=== PATIENT | female | born 1990 | race Caucasian/White ===

== ENCOUNTER 2020-09-24 21:13 | Emergency (ER) | payer BC, SELFPAY ==
[2020-09-24 21:20] VITALS: BP 131/82; PULSE 100; RESP 15; TEMP 36.8; O2SAT 100
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
[2020-09-24] MEDS: HYDROcodone/acetaminophen (*CRX) 5-325 MG TABLET 1 TAB PO (21:35)
[2020-09-24] MEDS: TETANUS,DIPHTHERIA,AC PERTUSSIS ADULT (0.5 ML) BOOSTRIX IM (23:10)
[2020-09-24 23:14] VITALS: BP 116/75; PULSE 78; RESP 23; O2SAT 100
== END 2020-09-24 23:15 | disposition home or self-care (01) ==
PROVIDERS: Emergency Provider Emergency Medicine; PCP Physician Assistant
DX: T23.161A Burn of first degree of back of right hand, initial encounter (principal); T31.0 Burns involving less than 10% of body surface; X03.0XXA Exposure to flames in controlled fire, not in building or structure, initial encounter; Z23 Encounter for immunization
CPT/HCPCS: 90471; 90715; 99283; A9270

== ENCOUNTER 2021-01-16 10:59 | Outpatient (CLI) | payer BC, SELFPAY ==
--- NOTE | ~2021-01-16 | US_ITS ---
US breast LT limited DATE: 01/16/2021 11:17 INDICATION: Breast lump TECHNIQUE: Targeted real time imaging at area of clinical complaint of breast lump at 10:00 1 cm from nipple COMPARISON: None FINDINGS: There is a 1.5 x 1.0 x 1.6 cm sonolucency with through transmission posterior enhancement c onsistent with simple cyst. No suspicious mass or shadowing is detected. IMPRESSION: BI-RADS Category 2: Benign finding Reviewed, dictated and finalized at [facility]. Reviewed, dictated and finalized at location A. [employer] MANAGER
== END 2021-01-16 11:00 | disposition home or self-care (01) ==
LOC: ANHIMG 11:01
PROVIDERS: PCP Physician Assistant; Visit Provider Student in an Organized Health Care Education/Training Program
DX: N63.22 Unspecified lump in the left breast, upper inner quadrant (principal)
CPT/HCPCS: 76642

== ENCOUNTER 2022-01-01 00:23 | Day surgery (SDC) | payer MEDICAID, SELFPAY ==
--- NOTE | 2021-12-22 10:44 | SUR.PREOP ---
Report to the Outpatient Waiting Room, entrance under the green pavilion located off [facility], at time 1330 on date 01/01/22. Planned Procedure Time: 1530. Time changes happen often and if your time is changed the preop area will call you the afternoon before. - You and your visitor will be asked to self-screen and do not enter if you have any COVID symptoms. - We encourage only one visitor and NO visitors under age 16 are allowed at this time. Your visitor will receive communication by the phone number that is given day of service. - The patient visitor is requested to social distance or may leave the building when not with patient due to restrictions. - A mask is required within the hospital. Patients may have clear liquids (water, carbonated beverages, clear teas, apple juice) until 3 hours prior to surgery with a maximum of 20 ounces. - NO CLEAR LIQUIDS AFTER 1230 - No food from midnight until time of surgery - Infants may have breast milk until 4 hours before surgery, infant formula 6 hours prior to surgery. - Children will be allowed to drink immediately following surgery. If applicable, please bring a bottle or sippy cup to assist with drinking. Juice, water, soda, and popsicles are readily available. For infants on formula, please bring formula the day of surgery. Pacifiers are allowed. Take the following medications with a SIP of water the morning of surgery: LEXAPRO, BUPROPION Please no make-up, nail azerbaijani, hairspray, perfume, deodorant, or body powder the day of surgery. No jewelry (including any body piercings) or valuables the day of surgery, leave them at home. Please take a shower or bath the night before, or the morning of, surgery with an antibacterial soap. Wear comfortable, loose fitting clothing. Children are encouraged to wear pajamas. - Jewelry must be removed prior to entering the operating room. Rings and piercings that are not removed may be cut off. - The hospital will not accept responsibility for valuables. - Please leave all valuables, including medications, at home the day of surgery. If you are going home after surgery, a licensed bus driver/monitor must drive you home. - NO public transportation without another adult. - We recommend that an adult stay with you for 24 hours following discharge. - We also recommend that you do not drive, make important decision, drink alcoholic beverages, or take any drugs that were not prescribed by your health care provider for at least 24 hours after your discharge time. For Pediatric surgeries, we recommend two adults accompany the child home. Follow any additional instructions given to you from your surgeon. If you or anyone in your household have experienced Covid symptoms in the past week, please notify your surgeon or the nurse liaison at the phone number below for possible testing. Telephone instructions given to NICANOR PEDROZA and asked if any additional questions and then verbalized understanding. Patient advised to call surgeon office or pre surgery nurse liaison [phone] if any additional questions.
[2021-12-22 10:54] VITALS: BMI 25.9
--- NOTE | 2021-12-30 11:40 | P.HP_ITS ---
H&P: HPI History of Present Illness Date/Time: 12/30/21 11:40 Chief Complaint: Desires permanent sterilization Narrative: Since 31-year-old multiparous patient admitted for laparoscopic bilateral tubal ligation secondary to desiring permanent sterilization. She has signed the [facility] consent form. She read the [employer] handout entitled sterilization for men and women. Risks and benefits of this procedure reviewed including but not exclusive of , aspiration pneumonia, bleeding, transfusion, perforation injury to bowel, bladder, ureters, or other internal organs with need for laparotomy. We reviewed all internal alternatives including but not exclusive of pills, patches, long-acting contraceptives. [facility] Social History Social History Spiritual care concerns: No Meds Home Medications and Allergies Home Medications Medication Instructions Recorded Confirmed Type bupropion HCl 150 mg tablet,12 hr 150 mg PO BID 12/22/21 12/22/21 History sustained-release escitalopram oxalate 10 mg tablet 10 mg PO DAILY 12/22/21 12/22/21 History (Lexapro) Allergies Allergy/AdvReac Type Severity Reaction Status Date / Time Penicillins Allergy Unknown Vomiting Verified 12/22/21 10:53 Exam Const: General: cooperative, healthy appearing, comfortable and well groomed Nutritional Appearance: average body habitus Orientation/consciousness: oriented to person, oriented to place and oriented to time HENMT: Head: normal to inspection Chest: Chest palpation & inspection: normal inspection of the chest Resp: Effort & Inspection: normal respiratory effort Cardio: Rate: regular rate Rhythm: regular rhythm Heart sounds: S1 larry l heart sound present and S2 normal heart sound present GI: Inspection: normal to inspection : External Female Exam: normal external appearance Speculum Exam - Vagina: normal appearance of the vagina and normal vaginal discharge Speculum Exam - Cervix: Cervical os closed Bimanual exam- vagina & uterus: non-tender Bimanual Exam- Adnexa, other: normal adnexae Assessment and Plan Assessment and plan (1) Sterilization: Code(s): Z30.2 - Encounter for sterilization Status: Acute Plan Laparoscopic bilateral tubal ligation
--- NOTE | 2021-12-31 14:51 | WPDANESEPPF ---
Anes - Initial Pre Proc Eval Procedure: Operation Date: 01/01/22 15:30 Proposed Procedures p Laparoscopic Bilateral Tubal Ligation with Fallopian Rings with Removal of Intrauterine Device - Isreal Hanson MD <Robert Pichardo MD - Last Filed: 01/03/22 08:04> Date/Time: 12/31/21 14:51 <Robert Pichardo MD - Last Filed: 01/03/22 08:04> Surgeon: Isreal Hanson MD <Robert Pichardo MD - Last Filed: 01/03/22 08:04> Pre Op Diagnosis: desires sterilization <Robert Pichardo MD - Last Filed: 01/03/22 08:04> Patient Data Age: 31 Gender: F Height: 1.5 m Weight: 58.2 kg <Robert Pichardo MD - Last Filed: 01/03/22 08:04> Allergies Allergy/AdvReac Type Severity Reaction Status Date / Time Penicillins Allergy Unknown Vomiting Verified 12/22/21 10:53 <Robert Pichardo MD - Last Filed: 01/03/22 08:04> Home Medications Medication Instructions Recorded Confirmed Type bupropion HCl 150 mg tablet,12 hr 150 mg PO BID 12/22/21 12/22/21 History sustained-release escitalopram oxalate 10 mg tablet 10 mg PO DAILY 12/22/21 12/22/21 History (Lexapro) hydrocodone 5 mg-acetaminophen 325 1 tablet PO Q4H PRN pain #20 tabs 01/01/22 Rx mg tablet <Robert Pichardo MD - Last Filed: 01/03/22 08:04> Patient hx anesthesia problems: none <Isreal Li MD - Last Filed: 01/01/22 13:43> Family hx anesthesia problems: none <Isreal Li MD - Last Filed: 01/01/22 13:43> Results Review: All pre-operative results and documents have been reviewed as part of the pre-operative evaluation. <Robert Pichardo MD - Last Filed: 01/03/22 08:04> PMFSH Past Medical History Medical History: Medical History Anxiety Depression <Robert Pichardo MD - Last Filed: 01/03/22 08:04> Surgical History Surgical History: Surgical History (Updated 01/01/22 @ 13:42 by Isreal Li MD) History of section <Robert Pichardo MD - Last Filed: 01/03/22 08:04> Social History Social History: Social History Spiritual care concerns: No <Robert Pichardo MD - Last Filed: 01/03/22 08:04> Anes - Eval Final PreProcedure Day of Procedure 12/31/21 14:51 <Robert Pichardo MD - Last Filed: 01/03/22 08:04> Patient weight: normal <Robert Pichardo MD - Last Filed: 01/03/22 08:04> Heart: regular rate and rhythm <Robert Pichardo MD - Last Filed: 01/03/22 08:04> Lungs: clear to auscultation and normal air movement <Robert Pichardo MD - Last Filed: 01/03/22 08:04> Airway: Mallampati scale class II <Robert Pichardo MD - Last Filed: 01/03/22 08:04> Mallampati scale class 1 <Isreal Li MD - Last Filed: 01/01/22 13:43> Neurological: alert and oriented <Robert Pichardo MD - Last Filed: 01/03/22 08:04> Last oral intake: >/= 8 hours <Robert Pichardo MD - Last Filed: 01/03/22 08:04> ASA classification: II <Robert Pichardo MD - Last Filed: 01/03/22 08:04> Emergent: no <Robert Pichardo MD - Last Filed: 01/03/22 08:04> Anesthetic plan: proceed <Robert Pichardo MD - Last Filed: 01/03/22 08:04> Anesthesia type and monitoring: general ETT <Robert Pichardo MD - Last Filed: 01/03/22 08:04> Results Review: All pre-operative results and documents have been reviewed as part of the pre-operative evaluation. <Robert Pichardo MD - Last Filed: 01/03/22 08:04> Informed Consent: The patient's anesthetic plan and its attendant risks and benefits were discussed with the patient/family/POA. Questions were solicited and answers provided to the satisfaction of the patient/family/POA. <Robert Pichardo MD - Last Filed: 01/03/22 08:04>
--- NOTE | 2022-01-01 06:20 | WPDHPUPDATE1 ---
History and Physical Update Update Date/Time: 01/01/22 06:20 History and Physical has been reviewed, including an updated exam of the patient. There are NO changes in the patient's condition. Risks, benefits, and alternatives have been discussed and questions answered. Patient agrees to proceed with procedure.
[2022-01-01] MEDS: ACETAMINOPHEN 500 MG TABLET 1000 MG PO (13:09)
[2022-01-01] MEDS: LACTATED RINGERS 1,000 ML 30 ML IV CONT (13:09)
[2022-01-01] MEDS: KETOROLAC 15 MG/ML VIAL (*BKC) IV PUSH ×2 (13:10→16:24)
[2022-01-01 13:12] VITALS: BP 124/78; PULSE 69; RESP 16; TEMP 37.3; O2SAT 99
--- NOTE | 2022-01-01 15:00 | P.OP_ITS ---
Procedure Note - Detailed Date of Procedure 01/01/22 Pre-op Diagnosis desires sterilization Post-op Diagnosis Same Procedure Performed Laparoscopic bilateral tubal ligation with rings Surgeon Isreal Hanson MD Anesthesia General Indications this is a 31-year-old female who is multiparous and desires permanent sterilization. She does have an IUD and this was today Findings uterus was somewhat enlarged but markedly adherent to the abdominal. The tubes and ovaries appeared within normal limits otherwise. Description of Procedure Patient was prepped draped in the normal sterile fashion placed in the dorsal lithotomy position. Under excellent general trach anesthesia weighted speculum placed posterior fornix vagina. Anterior lip of cervix grasped with single- tooth tenaculum. The uterus uterine manipulator was attached to the single- tooth to be used later for urinary uterine manipulation. The bladder is emptied of clear urine. The weighted speculum was removed and gloves were changed. An infraumbilical incision made with a Veress needle passed in the abdomen. Abdomen filled with CO2 gas to 15mm emerge the 5mm trocar advanced in the abdomen under direct visualization assuring no injury. Patient placed in 10 Trendelenburg and a left lower quadrant incision was made the 5mm trocar advanced in the abdomen under direct visualization. The uterus was noted be markedly adherent to the anterior abdominal wall. The fallopian tubes and ovaries appeared within normal limits. The left fallopian tube was grasped in its midportion a good knuckle of tube Grass and a good blanching was noted. The right fallopian tube was then grasped at its midportion good knuckle of tube brought up with excellent blanching with the ring. Photo documentation was undertaken. Lower site removed. The gas removed from the abdomen. The upper site removed. The incisions closed with 4-0 Monocryl and glue. Patient went to recovery in satisfactory condition. All sponge, needle, instrument counts were correct. There were no immediate complications Estimated Blood Loss 5 Drains No Packing No Pathology None sent Complications No immediate complications Condition Stable Disposition PACU
[2022-01-01 15:17] VITALS: BP 110/65; PULSE 100; RESP 13; TEMP 36.4; O2SAT 96
[2022-01-01 15:30] VITALS: BP 119/80; PULSE 110; RESP 14; O2SAT 97
[2022-01-01 15:45] VITALS: BP 121/86; PULSE 104; RESP 10; O2SAT 97
[2022-01-01 16:00] VITALS: BP 133/81; PULSE 102; RESP 15
[2022-01-01 16:25] VITALS: BP 126/73; PULSE 85; RESP 15
== END 2022-01-01 16:44 | disposition home or self-care (01) ==
PROVIDERS: PCP Physician Assistant; Visit Provider Obstetrics & Gynecology
PROC: (CPT 58671; principal; 2022-01-01 15:30)
DX: Z30.2 Encounter for sterilization (principal); N73.6 Female pelvic peritoneal adhesions (postinfective); F41.9 Anxiety disorder, unspecified; F32.A Depression, unspecified
CPT/HCPCS: 58671; A4264; A9270; J0330; J1100; J1885; J2250; J2405; J2704; J3010; J7120

== ENCOUNTER 2022-04-27 10:47 | Emergency (ER) | payer BC, SELFPAY ==
--- NOTE | ~2022-04-27 | XR_ITS ---
XR facial bones min 3V 04/27/2022 12:27 Indication: Facial pain after trauma Procedure: 4 views of the facial bones Comparison: No prior studies for comparison. Findings: No acute maxillofacial fracture is identified. Temporomandibular joints are symmetric. No f ocal soft tissue abnormality. No foreign bodies. Paranasal sinuses appear pneumatized. Mastoids are p neumatized. Impression: 1: No acute facial fracture is identified. If there is continued concern for subtle nondisplaced frac ture, correlation with CT recommended. Reviewed, dictated and finalized at location [facility]. TRANSPORTER Impression: 1: No acute facial fracture is identified. If there is continued concern for blandon btle nondisplaced fracture, correlation with CT recommended.
[2022-04-27 11:22] VITALS: BP 142/83; PULSE 83; RESP 16; TEMP 37.7; O2SAT 99
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
== END 2022-04-27 13:07 | disposition home or self-care (01) ==
PROVIDERS: Emergency Provider Nurse Practitioner Family
DX: R51.9 Headache, unspecified (principal); Y04.8XXA Assault by other bodily force, initial encounter
CPT/HCPCS: 70150; 99213; G0463

== ENCOUNTER 2022-04-28 08:54 | Emergency (ER) | payer BC, SELFPAY ==
--- NOTE | ~2022-04-28 | CT_ITS ---
EXAMINATION: CT facial bones wo con DATE: 04/28/2022 11:16 INDICATION: Left-sided jaw pain and swelling. Status post injury. TECHNIQUE: Computed tomography (CT) of the was performed without intravenous contrast. The dose-lengt h product was 419.93 mGy-cm. Automated exposure control and iterative reconstruction technique were e mployed. COMPARISON: Facial bone x-rays dated 04/27/2022 FINDINGS: There is mucosal thickening of the left maxillary sinus. No air-fluid levels. No mucoperios teal reaction. The orbits are symmetric. The mandible is intact. Temporomandibular joints are symmetr ic. No nasal fractures. Orbits within normal limits without blowout fracture. There is nasal septal d eviation to the right posteriorly. Zygomatic arches and pterygoid plates are intact. Mastoids are pne umatized. IMPRESSION: 1. No acute abnormality of the facial bones. Reviewed, dictated and finalized at location [facility]. [facility]
--- NOTE | ~2022-04-28 | CT_ITS ---
Non-contrast Head CT History: Head injury Technique: Axial non-contrast imaging of the brain was performed. Dose reduction technique was used on this scan by utilizing automated exposure control and iterative reconstruction technique. The dose -length product (DLP) was 529.67 mGy-cm. Findings: There is a very small acute subdural hematoma along the right side of the anterior falx cer ebri. The ventricles and subarachnoid spaces are normal in size. The calvarium appears normal. The visualized paranasal sinuses and mastoid air cells are clear. Impression: Very small acute subdural hematoma on the right side of the anterior falx cerebri. Case discussed with SRI Howard at the time of this reading. Reviewed, dictated and finalized at [facility]. INSTALLER Impression: Very small acute subdural hematoma on the right side of the anterior falx cereb ri. Case discussed with SRI Howard at the time of this reading.
[2022-04-28 08:56] VITALS: BP 134/80; PULSE 86; RESP 16; TEMP 37; O2SAT 100
[2022-04-28 10:56] VITALS: BP 118/78; PULSE 78; RESP 14; O2SAT 100
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
[2022-04-28 12:12] VITALS: BP 123/90; PULSE 100; RESP 18; O2SAT 100
== END 2022-04-28 12:28 | disposition short-term general hospital (02) ==
PROVIDERS: Emergency Provider Physician Assistant
DX: S06.5XAA Traumatic subdural hemorrhage with loss of consciousness status unknown, initial encounter (principal); T74.11XA Adult physical abuse, confirmed, initial encounter; Y07.03 Male partner, perpetrator of maltreatment and neglect
CPT/HCPCS: 70450; 70486; 99284; 99285; L0140

== ENCOUNTER 2022-06-08 15:34 | Emergency (ER) | payer BC, SELFPAY ==
[2022-06-08 15:40] VITALS: BP 133/58; PULSE 65; RESP 16; TEMP 37.6; O2SAT 100
--- NOTE | 2022-06-08 15:53 | ED.URI ---
HPI - URI/Sore Throat General Chief Complaint: Upper Respiratory Infection Stated Complaint: congestion Time Seen by Provider: 06/08/22 15:53 Source: patient, RN notes reviewed and old records reviewed Mode of arrival: ambulatory Limitations: no limitations History of Present Illness HPI Narrative: 31-year-old female presents to the [facility] with complaints of decreased hearing and ear pain bilaterally. States the pain is been going on about 4 days. Reports that she had cold-like symptoms a week ago. Has been taking Sudafed with no relief. Onset (ago): day(s) (4) Related Data Home Medications Medication Instructions Recorded Confirmed bupropion HCl 150 mg tablet,12 hr 150 mg PO BID 12/22/21 06/08/22 sustained-release escitalopram oxalate 10 mg tablet 10 mg PO DAILY 12/22/21 06/08/22 (Lexapro) Allergies Allergy/AdvReac Type Severity Reaction Status Date / Time Penicillins Allergy Unknown Vomiting Verified 06/08/22 15:41 Review of Systems Review of Systems: All systems reviewed & are unremarkable except as noted in HPI and below Constitutional: Constitutional: Reports no additional constitutional complaints Eyes: Eyes: Reports no additional eye complaints ENT: Reports as per HPI and Reports otalgia (Bilateral) Cardiovascular: Cardiovascular: Reports no additional cardiovascular complaints, Denies chest pain and Denies dyspnea Respiratory: Respiratory: Reports no additional respiratory complaints, Denies chest congestion, Denies cough and Denies dyspnea Gastrointestinal: Gastrointestinal: Reports no additional gastrointestinal complaints, Denies abdominal pain, Denies nausea and Denies vomiting Musculoskeletal: Musculoskeletal: Reports no additional musculoskeletal complaints Integumentary/Breasts: Skin/Breast: Reports system reviewed and no additional complaints, except as docu Neurologic: Reports system reviewed and no additional complaints, except as documented Psychiatric: Psychiatric: Reports no additional psychiatric complaints Allergic/Immunologic: Allergic/Immunologic: Reports no additional allergic/immunologic complaints PMFSH Past Medical History Medical History Anxiety Depression Surgical History Surgical History History of section Social History Social History Substance use: never Spiritual care concerns: No Comments At the time of my signature, I reviewed and agree with the nursing past medical, surgical, social, and family history. There is no relevant family history pertinent to the patient complaint. Exam Const: General: cooperative, healthy appearing, comfortable, no acute distress, well developed, alert and well nourished Nutritional Appearance: well nourished Orientation/consciousness: patient oriented x3 Limitations: no limitations HENMT: Head: normal to inspection Ears: hearing grossly normal bilaterally, external ears normal and TM abnormal bulging bilateral, wth effusion serous on the right, erythematous on the left and with fluid behind the TM on the right Face/Nose/Sinus: Normal external nose present, Normal nares present, Normal nasal mucous membranes and turbinates present and normal facial exam Face and sinus: normal facial exam Mouth: Yes Normal oral and palatal mucosa present, Yes lip normal and Yes moist mucous membranes Throat: posterior oropharynx normal, tonsils normal and uvula midline Eyes: General: appearance normal, both eyes and all related structures Alignment and Position: alignment normal Periorbital: periorbital findings normal Conjunctivae: conjunctivae normal Pupils: Equal, round and reactive pupils present EOM: EOMs intact bilaterally Neck: Neck: normal visual inspection, full ROM, no lymphadenopathy and no meningeal signs Chest: Chest palpation & inspection:
== END 2022-06-08 16:05 | disposition home or self-care (01) ==
PROVIDERS: Emergency Provider Nurse Practitioner; PCP Physician Assistant
DX: H66.92 Otitis media, unspecified, left ear (principal); H65.01 Acute serous otitis media, right ear; F41.9 Anxiety disorder, unspecified; F32.A Depression, unspecified
CPT/HCPCS: 99213; G0463

== ENCOUNTER 2024-02-19 08:14 | Emergency (ER) | payer BC, SELFPAY ==
--- NOTE | 2024-02-19 08:19 | ED_ITS ---
HPI - URI/Sore Throat General Chief Complaint: Upper Respiratory Infection Stated Complaint: sore throat,cold Time Seen by Provider: 02/19/24 08:17 Source: patient Mode of arrival: ambulatory Limitations: no limitations History of Present Illness HPI Narrative: Yamila is a 33-year-old female patient presenting to the clinic today with complaints of sore throat, runny nose, and cough x3 days. She denies any known fever but has had some chills. Has had exposure to her mother who was positive for strep. Is wanting to make sure she does not have strep before she starts her work week. MD elicited complaint: cough, sore throat and nasal congestion Related Data Home Medications ?Medication ?Instructions ?Recorded ?Confirmed ?Last Taken ?Type bupropion HCl 150 mg tablet,12 hr 150 mg PO BID 12/22/21 02/19/24 04/27/22 History sustained-release escitalopram oxalate 10 mg tablet 10 mg PO DAILY 12/22/21 02/19/24 04/27/22 History (Lexapro) Allergies Allergy/AdvReac Type Severity Reaction Status Date / Time Penicillins Allergy Unknown Vomiting Verified 02/19/24 08:21 Review of Systems Review of Systems: Pertinent positives per HPI. Patient denies any fever, rash, headache, visual changes, dizziness, shortness of breath, chest pain, palpitations, nausea, vomiting, diarrhea, constipation, abdominal pain, or any urinary issues. [facility] Past Medical History Medical History Anxiety Depression Surgical History Surgical History History of section Social History Social History Substance use: never Spiritual care concerns: No Comments At the time of my signature, I reviewed and agree with the nursing past medical, surgical, social, and family history. There is no relevant family history pertinent to the patient complaint. Exam Narrative: General: Well-developed, well nourished, in no apparent distress Head: Normocephalic, atraumatic Eyes: Pupils equally round and reactive to light bilaterally, EOM intact, sclera and conjunctive clear, no discharge, lids normal Ears: TMs intact and clear, ear canals clear, no drainage, grossly hearing normal. Nose: Nares patent, clear nasal discharge, no inflammation, no sinus tenderness. Mouth: Oral pharynx red without lesions or masses, good dentition, MMM. Postnasal drip Neck: Supple, trachea midline, no enlargement of anterior or posterior cervical nodes, no thyroid masses or goiter palpable. Cardio: Regular rate and rhythm, s1 and s2 normal, no murmur appreciated. Resp: Clear to auscultation bilaterally, no rhonchi, rales, wheezing or rubs Course Course Emergency Course: Portions of this record may have been created with voice recognition software. Level of Care: Express Care Visit Vital Signs Vital signs: Vital Signs Temperature 37.2 C 02/19/24 08:41 Pulse Rate 81 02/19/24 08:41 Respiratory Rate 16 02/19/24 08:41 Blood Pressure 131/79 02/19/24 08:41 Pulse Oximetry 99 02/19/24 08:41 Oxygen Delivery Room Air 02/19/24 08:41 Temperature 37.2 C 02/19/24 08:41 Pulse Rate 81 02/19/24 08:41 Respiratory Rate 16 02/19/24 08:41 Blood Pressure 131/79 02/19/24 08:41 Pulse Oximetry 99 02/19/24 08:41 Oxygen Delivery Room Air 02/19/24 08:41 Vital signs reviewed MDM - URI/Sore Throat MDM Narrative Medical decision making narrative: At the time of visit patient is resting comfortably on the exam table. Patient appears to be nontoxic. Labs: Strep test was performed and was negative in the clinic today. We will send strep for culture. Plan: I suspect patient URI/pharyngitis. Supportive measures were discussed with the patient and they voiced understanding discharge instructions and agrees to treatment plan. Return precautions reviewed Differential Diagnosis Differential diagnosis: Likely upper respiratory infection, otitis media, sinusitis, viral infection, bronchitis, influenza, pharyngitis and other (COVID) Discharge Plan Discharge Clinical Impression: URI (upper respiratory infection) Qualifiers: URI type: unspecified URI Qualified Code(s): J06.9 - Acute upper respiratory infection, unspecified Pharyngitis Qualifiers: Pharyngitis/tonsillitis etiology: unspecified etiology Qualified Code(s): J02.9 - Acute pharyngitis, unspecified Patient Disposition: Home, Self-Care Condition: Stable Instructions: Antibiotic Form, Pharyngitis (ED), Cold Symptoms (ED) Additional Instructions: Strep test was negative in the clinic today. We will send strep for culture May take DayQuil/NyQuil for cold/flu symptoms Increase fluids and stay well hydrated Tylenol/motrin for pain/fever Flonase and OTC antihistamines as directed Vicks vapor rub to open sinuses Sinus rinses for congestion Cepacol spray, cough drops, throat lozenges, warm tea with honey/lemon, gargle salt water to soothe throat BRAT diet for diarrhea Clear liquids x 24 hours then advance as tolerated for nausea/vomiting Go to the ED if you develop a worsening in your condition- high fever not cont rolled by Tylenol or Motrin, dehydration, weakness, lethargy, shortness of breath, or chest pain. Follow up with your PCP in 3-5 days if symptoms persist. Patient Language: Maori Prescriptions: No Action bupropion HCl 150 mg Tablet Sustained-Release 12 Hr 150 mg PO BID escitalopram oxalate [Lexapro] 10 mg Tablet 10 mg PO DAILY Follow-up/Referrals: UNKNOWN,DOCTOR [Primary Care Provider] - Time of Disposition: 08:41 Quality NIHSS Nursing Documentation ED NIHSS nursing documentation: reviewed/agree
[2024-02-19 08:41] VITALS: BP 131/79; PULSE 81; RESP 16; TEMP 37.2; O2SAT 99
[2024-02-19 08:44] LABS: EDSTREPNEGPOS1 Negative (Negative)
== END 2024-02-19 08:42 | disposition home or self-care (01) ==
PROVIDERS: Emergency Provider Nurse Practitioner Family
DX: J06.9 Acute upper respiratory infection, unspecified (principal); J02.9 Acute pharyngitis, unspecified; F41.9 Anxiety disorder, unspecified; F32.A Depression, unspecified
CPT/HCPCS: 87081; 87880; 99213; G0463

== ENCOUNTER 2024-12-12 18:45 | Emergency (ER) | payer BC, SELFPAY ==
[2024-12-12 18:52] VITALS: BP 127/80; PULSE 78; RESP 18; TEMP 37; O2SAT 100
--- NOTE | 2024-12-12 19:05 | ED.EAR ---
HPI - Ear Problem General Chief complaint: Ear Stated complaint: right ear pain Time Seen by Provider: 12/12/24 18:58 Source: patient and RN notes reviewed Mode of arrival: ambulatory Limitations: no limitations History of Present Illness HPI Narrative: 34-year-old female patient presents today complaining of right ear pain and muffling x2 days. Denies any additional URI symptoms. Currently rates her pain 7/10 and has tried ibuprofen with very mild relief. Patient wears a headset for 8 hours a day at work, but does not wear ear plugs or ear buds. She has not been swimming recently. Related Data Home Medications ?Medication ?Instructions ?Recorded ?Confirmed ?Last Taken ?Type bupropion HCl 150 mg tablet,12 hr 150 mg PO BID 12/22/21 02/19/24 04/27/22 History sustained-release escitalopram oxalate 10 mg tablet 10 mg PO DAILY 12/22/21 02/19/24 04/27/22 History (Lexapro) dextroamphetamine-amphetamine ER PO 12/12/24 Unknown History 15 mg 24hr capsule,extend release Allergies Allergy/AdvReac Type Severity Reaction Status Date / Time Penicillins Allergy Unknown Vomiting Verified 12/12/24 18:54 PMFSH Past Medical History Medical History Depression Anxiety Surgical History Surgical History History of section Social History Social History Substance use: never Spiritual care concerns: No Comments At time of signature, I have reviewed and agree with nursing past medical, surgical, social and family history unless otherwise noted. Please see nursing chart for further information. There is no relevant family history pertinent to the presenting complaint Exam Narrative: GENERAL: Well-appearing, well-nourished, and in no acute distress. HEAD: Normocephalic, atraumatic. EYES: EOMI. No redness or drainage. Conjunctivae normal. ENT: Mucous membranes pink and moist. Right ear:+ tragal and movement tenderness. Moderately swollen canal that is moist with some yellow drainage. NECK: Normal AROM. CHEST: No respiratory distress. EXTREMITIES: Normal range of motion. No edema. SKIN: Warm, dry, no rash. Capillary refill normal. Normal skin turgor. NEURO: No focal deficits. Alert and oriented x3. Gait steady. PSYCH: Normal affect. No signs of depression or anxiety. Course Course Level of Care: Express Care Visit Vital Signs Vital signs: Vital Signs Temperature 98.6 F 12/12/24 18:52 Pulse Rate 78 12/12/24 18:52 Respiratory Rate 18 12/12/24 18:52 Blood Pressure 127/80 12/12/24 18:52 Pulse Oximetry 100 12/12/24 18:52 Oxygen Delivery Room Air 12/12/24 18:52 Temperature 98.6 F 12/12/24 18:52 Pulse Rate 78 12/12/24 18:52 Respiratory Rate 18 12/12/24 18:52 Blood Pressure 127/80 12/12/24 18:52 Pulse Oximetry 100 12/12/24 18:52 Oxygen Delivery Room Air 12/12/24 18:52 Reviewed Medical Decision Making MDM Narrative Medical decision making narrative: 34-year-old female patient presents today complaining of right ear pain and muffling x2 days. Denies any additional URI symptoms. Exam shows moderately swollen right ear canal with movement and tragal tenderness with some yellow discharge in the canal. Prescription for Ciprodex sent to pharmacy for otitis externa. Vital signs stable. Patient agrees with plan. Anticipatory guidance given. Differential Diagnosis Differential Diagnosis: Otitis media, otitis externa, ruptured TM, serous otitis, cerumen impaction Vital Signs Vital Signs: Vital Signs Temperature 98.6 F 12/12/24 18:52 Pulse Rate 78 12/12/24 18:52 Respiratory Rate 18 12/12/24 18:52 Blood Pressure 127/80 12/12/24 18:52 Pulse Oximetry 100 12/12/24 18:52 Oxygen Delivery Room Air 12/12/24 18:52 Temperature 98.6 F 12/12/24 18:52 Pulse Rate 78 12/12/24 18:52 Respiratory Rate 18 12/12/24 18:52 Blood Pressure 127/80 12/12/24 18:52 Pulse Oximetry 100 12/12/24 18:52 Oxygen Delivery Room Air 12/12/24 18:52 Critical Care Time Critical Care Time Critical Care Time: No Discharge Plan Discharge Clinical Impression: Otitis externa of right ear Patient Disposition: Home Condition: Stable Instructions: Swimmer's Ear (ED) Additional Instructions: You have been diagnosed with an infection in your ear canal. Please use the ear drops as directed. Keep the ears dry as possible. Do not submerge your head in standing water such as pools, hot tubs, lakes, bathtubs, until the infection has resolved. Showering is fine. Do not use anything in the ear that can be irritating such as Q-tips, ear plugs, ear buds. Take Tylenol or ibuprofen for pain, if able. Follow-up with your PCP in 3 days if symptoms are not improving. Patient Language: Jamaican Prescriptions: New ciprofloxacin-dexamethasone 0.3-0.1 % drops,suspension 4 drp RIGHT EAR Q12H 7 Days Qty: 7.5 0RF No Action dextroamphetamine-amphetamine 15 mg capsule,extended release 24hr PO bupropion HCl 150 mg Tablet Sustained-Release 12 Hr 150 mg PO BID escitalopram oxalate [Lexapro] 10 mg Tablet 10 mg PO DAILY Follow-up/Referrals: Jadon,Luis A [Other] Time of Disposition: 19:09
== END 2024-12-12 19:15 | disposition home or self-care (01) ==
PROVIDERS: Emergency Provider Nurse Practitioner
DX: H60.91 Unspecified otitis externa, right ear (principal); F41.9 Anxiety disorder, unspecified; F32.A Depression, unspecified
CPT/HCPCS: 99213; G0463